=== PATIENT | female | born 1995 | race Caucasian/White ===

== ENCOUNTER 2021-12-06 02:56 | Inpatient (IN) ==
[2021-12-06] MEDS ORDERED: OXYTOCIN 30 UNITS/500 ML BAG IV PRN ×3 (03:36→23:58)
[2021-12-06] MEDS ORDERED: PENICILLIN G POTASSIUM 6 MU in DEXTROSE 5% 250 ML IV STA (03:36)
[2021-12-06] MEDS ORDERED: LIDOCAINE 1% LOCAL 20 ML VIAL INFIL PRN (03:36)
[2021-12-06] MEDS ORDERED: BUTORPHANOL TARTRATE 1 MG/ML VIAL IV PRN (03:41)
[2021-12-06] MEDS: LACTATED RINGER'S 1,000 ML IV PRN ×4 (04:06→20:01)
[2021-12-06 04:17] LABS: Hematocrit (blood only) 39.4 % (34.1-44.9); Hemoglobin 13.2 g/dl (12.0-16.0); Mean Corpuscular Hemoglobin 27.7 pg (25.0-34.0); Mean Corpuscular Hgb Conc 33.5 g/dL (32.0-36.0); Mean Corpuscular Volume 82.8 fL (80.0-100.0); Mean Platelet Volume 11.8 fL (9.4-12.3); Platelet Count 265 K/uL (130-400); RDW Coefficient of Variation 15.1 % (11.5-14.5); Red Blood Count 4.76 M/uL (3.93-5.22); White Blood Count 9.19 K/ul (4.8-10.8)
[2021-12-06] MEDS ORDERED: SODIUM CHLORIDE 0.9% 250 ML IV PRN (04:25)
[2021-12-06] MEDS: PENICILLIN G POTASSIUM 3 MU in DEXTROSE 5% 100 ML IV PRN ×4 (08:14→20:02)
--- NOTE | 2021-12-06 08:19 | History & Physical Report ---
Date of Service December 06, 2021 Assessment & Plan (1) : Plan: Plan for Oxytocin to augment ctx Admission and Anticipated Discharge Date Admission Date: December 06, 2021 History of Present Illness Chief Complaint: spontaneous rupture of membranes Primary Care Provider: Tania Oliver MD 26 F P0000 at 38.6 with SROM clear fluid. GBS is negative. mild contractions. Allergies Allergy/AdvReac Type Severity Reaction Status Date / Time No Known Allergies Allergy Verified 12/06/21 03:15 Home Medications Medication Instructions Recorded Confirmed Type omeprazole 20 mg capsule,delayed 20 mg PO BID 11/24/18 12/06/21 History release cetirizine 10 mg capsule (Zyrtec) 10 mg PO DAILY PRN Allergy Symptoms 01/06/21 12/06/21 History prenat.vits,tanna,[id number] 1 tab PO DAILY 04/23/21 12/06/21 History ascorbic acid (vitamin C) 300 mg 300 mg PO DAILY 12/06/21 12/06/21 History chewable tablet ferrous sulfate 325 mg (65 mg 325 mg PO BID 12/06/21 12/06/21 History iron) tablet (iron) Patient History Medical History H/O breast lump H/O: depression Uterine fibroid found in beginning of Surgical History H/O eye surgery Family History Father Cardiac disorder Diabetes Hypertension Mother Depression Diabetes Hypertension Other Dyslipidemia Denies family history of Ovarian cancer Breast cancer Colorectal cancer Uterine cancer Social History Smoking Status: Never smoker Hx Alcohol Use: No Hx Substance Use: No Preferred Language: Macedonian Communication Ability: Effective Tree Pruner Required: No Beliefs That Will Affect Care: None marital status: marital status details: David (29) unable to have phone, call grandmother [phone] Current Living Situation: Spouse and Family Current Living Situation Comment: lives with spouse, grandparents, 1 dog. 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 History history of fibroid Review of Systems All systems reviewed & are unremarkable except as noted in HPI & below Physical Exam Constitutional: WD/WN, vitals as above Eyes: PERRL, conjunctivae normal, anicteric sclerae Respiratory: normal respiratory effort, lungs clear to auscultation Cardiovascular: RRR, no murmur, no edema Gastrointestinal (Abdomen): normal bowel sounds, soft, nontender, no hepatosplenomegaly Musculoskeletal: Extremities: extremities normal to inspection Skin: no rashes, warm and dry Neurologic: patellar DTR's 2+ bilat, sensation intact Psychiatric: A+Ox3, euthymic affect Genitourinary: no vaginal lesions, no adnexal mass OB Exam Abdomen: + fundal height, + vertex and + estimated weight (7-8) Manual OB Exam: + cervical dilation 2 cm, + cervical effacement 60% and + station (posterior) -2 OB Exam Monitor Tracing: + external FHT monitor used, + external uterine monitor used, + category I and + normal FHT variability Results & Data ([facility]) Vital Signs (Past 12 Hours) Vital Signs Temp Pulse Resp BP 12/06/21 03:20 36.7 C 18 12/06/21 07:10 36.6 C 12/06/21 07:05 96 H 132/78 12/06/21 04:59 36.4 C L 12/06/21 03:11 89 132/88 Laboratory Results Laboratory Results - last 24 hr 12/06/21 12/06/21 12/06/21 03:34 03:40 03:56 WBC RBC Hgb Hct MCV MCH MCHC RDW Std Deviation RDW Coeff of Cecilia Plt Count MPV POC Glucose 95 Amniotic Protein Pending SARS-CoV-2, RNA, NAAT NEGATIVE Blood Type Antibody Screen Crossmatch 12/06/21 12/06/21 03:58 03:58 WBC 9.19 RBC 4.76 Hgb 13.2 Hct 39.4 MCV 82.8 MCH 27.7 MCHC 33.5 RDW Std Deviation 46.0 RDW Coeff of Cecilia 15.1 H Plt Count 265 MPV 11.8 POC Glucose Amniotic Protein SARS-CoV-2, RNA, NAAT Blood Type O Positive Antibody Screen NEGATIVE Crossmatch See Detail Code Status & VTE Plan VTE Prophylaxis Plan VTE Prophylaxis will be ordered: No Monitoring External Monitor Cat 1
[2021-12-06] MEDS ORDERED: NALBUPHINE HCL INJ 10 MG/ML AMP IV PRN (10:49)
[2021-12-06] MEDS ORDERED: NALOXONE HCL 0.4 MG/1 ML VIAL/CARP IV PRN (10:49)
[2021-12-06] MEDS ORDERED: fentaNYL 2MCG/ML ROPIVACAINE 1.25MG/ML 100 ML BAG EPI PRN (10:49)
[2021-12-06] MEDS ORDERED: ePHEDrine sulfate 50 MG/ML AMP IV PRN (10:49)
[2021-12-06] MEDS ORDERED: NALOXONE HCL 1 MG in SODIUM CHLORIDE 0.9% 1000ML 1,000 ML IV PRN (10:49)
[2021-12-06] MEDS ORDERED: diphenhydrAMINE 50 MG/ML VIAL IV PRN (10:49)
--- NOTE | 2021-12-06 10:49 | Anesthesiology Consultation ---
Date of Service December 06, 2021 Assessment & Plan (1) Encounter for pre-operative examination: Chart Review Chart Review: Patient NOT seen in Pre Admission Testing and Acceptable Risk for Labor Epidural Consults Requested none History Height/Weight Height: 5 ft 5 in Weight: 106.141 kg Allergies Allergy/AdvReac Type Severity Reaction Status Date / Time No Known Allergies Allergy Verified 12/06/21 03:15 Medications Home Medications Medication Instructions Recorded Confirmed Last Taken omeprazole 20 mg capsule,delayed 20 mg PO BID 11/24/18 12/06/21 12/05/21 22:00 release cetirizine 10 mg capsule (Zyrtec) 10 mg PO DAILY PRN Allergy Symptoms 01/06/21 12/06/21 12/05/21 22:00 prenat.vits,tanna,[id number] 1 tab PO DAILY 04/23/21 12/06/21 12/05/21 22:00 ascorbic acid (vitamin C) 300 mg 300 mg PO DAILY 12/06/21 12/06/21 12/06/21 00:00 chewable tablet ferrous sulfate 325 mg (65 mg 325 mg PO BID 12/06/21 12/06/21 12/06/21 00:01 iron) tablet (iron) Active Medications Generic Name Dose Route Start Last Admin Trade Name Freq PRN Reason Stop Dose Admin Lactated Ringer's 1,000 mls @ 125 mls/hr 12/06/21 03:36 12/06/21 08:14 Lr IV 12/08/21 03:35 125 mls/hr .Q8H PRN Administration L&D Protocol Protocol Penicillin G Potassium 3 mu/ 106 mls @ 100 mls/hr 12/06/21 06:36 12/06/21 08:14 Dextrose IV 12/16/21 06:35 100 mls/hr Q4H PRN Administration GBS(+) Until Delivery Oxytocin 30 units in 500 mls @ 1 mls/hr 12/06/21 08:05 12/06/21 09:21 Pitocin IV 12/08/21 08:04 0.06 units/hr .Q24H PRN 1 mls/hr Labor Induction/Augmentation Administration Protocol 0.06 UNITS/HR Past Medical History Medical History H/O breast lump H/O: depression Uterine fibroid found in beginning of Past Family History Family History Father Cardiac disorder Diabetes Hypertension Mother Depression Diabetes Hypertension Other Dyslipidemia Denies family history of Ovarian cancer Breast cancer Colorectal cancer Uterine cancer Past Surgical History Surgical History H/O eye surgery Social History Smoking Status: Never smoker Hx Alcohol Use: No Hx Substance Use: No substance use type: does not use Physical Exam Vital Signs Last Vital Signs Temp 97.7 F 12/06/21 09:39 Pulse 83 12/06/21 10:37 Resp 18 12/06/21 03:20 BP 149/82 H 12/06/21 10:37 Testing Laboratory Results 12/06/21 03:58 Blood Type O Positive 12/06/21 03:58 Antibody Screen NEGATIVE 12/06/21 03:58 12/06/21 03:56 POC Glucose 95
[2021-12-06] MEDS ORDERED: ePHEDrine sulfate 50 MG/ML AMP ONE (10:52)
[2021-12-06] MEDS ORDERED: SODIUM CHLORIDE 0.9% INJ 10 ML VIAL ONE (10:52)
[2021-12-06] MEDS ORDERED: fentaNYL citrate 100 MCG/2 ML VIAL ONE (10:52)
[2021-12-06] MEDS ORDERED: BUPIVACAINE 0.25% 30 ML VIAL ONE ×2 (10:53→22:30)
[2021-12-06] MEDS ORDERED: LIDOCAINE 2%/EPINEPHRINE 1:200,000 20 ML SDV ONE (10:53)
[2021-12-06] MEDS ORDERED: fentaNYL 2MCG/ML ROPIVACAINE 1.25MG/ML 100 ML BAG EPI ONE (10:54)
[2021-12-06] MEDS ORDERED: ONDANSETRON INJ 2 MG/ML 2 ML VIAL IV PRN (16:08)
[2021-12-06] MEDS ORDERED: NURSING L&D Epidural Breakthrough Pain Update ONE (17:54)
[2021-12-06] MEDS ORDERED: ACETAMINOPHEN 325 MG TAB ONE (19:33)
[2021-12-06] MEDS: ACETAMINOPHEN 325 MG TAB PO PRN (19:35)
[2021-12-06] MEDS ORDERED: BENZOCAINE 20% AER SPR 82.5 GM CAN EXT PRN (23:58)
[2021-12-06] MEDS ORDERED: DIPHTHERIA/TETANUS/PERTUSSIS 0.5 ML SYR/VIAL IM ONE (23:58)
[2021-12-06] MEDS ORDERED: ACETAMINOPHEN 325 MG TAB PO PRN (23:58)
[2021-12-06] MEDS ORDERED: bisacodyL 10 MG SUPP PR PRN (23:58)
[2021-12-06] MEDS ORDERED: HYDROCORTISONE ACETATE 25 MG SUPP PR PRN (23:58)
--- NOTE | 2021-12-07 00:01 | Delivery Summary ---
Vaginal Delivery Summary Date of Service December 06, 2021 Vaginal Delivery Summary Delivery Note live male IZA over intact perineum with nuchal cord x1 reduced at delivery. Spontaneous delivery of intact placenta. Small first degree tear repaired with 3/0 Vicryl suture. EBL 150 ml. Final sponge needle and instrument count are correct. Mom and baby stable.
[2021-12-07] MEDS: IBUPROFEN 600 MG TAB PO PRN ×3 (00:33→15:37)
[2021-12-07] MEDS ORDERED: CETIRIZINE HCL 10 MG TABLET PO PRN (00:39)
[2021-12-07 07:49] LABS: Hematocrit (blood only) 36.7 % (34.1-44.9); Hemoglobin 12.3 g/dl (12.0-16.0); Mean Corpuscular Hemoglobin 28.1 pg (25.0-34.0); Mean Corpuscular Hgb Conc 33.5 g/dL (32.0-36.0); Mean Corpuscular Volume 83.8 fL (80.0-100.0); Mean Platelet Volume 12.5 fL (9.4-12.3); Platelet Count 268 K/uL (130-400); RDW Coefficient of Variation 15.4 % (11.5-14.5); Red Blood Count 4.38 M/uL (3.93-5.22); White Blood Count 18.35 K/ul (4.8-10.8)
[2021-12-07] MEDS: DOCUSATE SODIUM 100 MG CAP PO SCH ×2 (08:47→19:40)
[2021-12-07] MEDS: FERROUS SULFATE 325 MG TAB PO SCH (08:47)
[2021-12-07] MEDS: PRENATAL VITAMIN 1 TAB PO SCH (08:47)
[2021-12-07] MEDS: PANTOprazole 40 MG TAB PO SCH ×2 (08:49→19:40)
--- NOTE | 2021-12-07 08:58 | Anesthesia Procedure Note ---
Date of Service December 07, 2021 Anesthesia Post Epidural Note Vital Signs Vital Signs: Temp Pulse Resp BP Pulse Ox O2 Del Method 97.9 F 90 20 116/79 98 12/07/21 08:11 12/07/21 08:11 12/07/21 08:11 12/07/21 08:11 12/07/21 08:11 12/07/21 08:11 Pain Intensity Left Abdomen: Pain Intensity: 2 Notes Mental Status: alert / awake / arousable and participated in evaluation Nausea / Vomiting: adequately controlled Pain: adequately controlled Airway Patency, RR, SpO2: stable & adequate BP & HR: stable & adequate Hydration State: stable & adequate Neuraxial Anesthesia: was administered and sensory block is resolving Anesthetic Complications: no major complications apparent and Pt Satisfied with anesthetic care Epidural: Removed without complications and With tip intact
[2021-12-07] MEDS ORDERED: NON-FORMULARY MEDICATION (Prenat.Vits,Cal,Min-Iron-Folic tablet) PO SCH (09:00)
[2021-12-07] MEDS ORDERED: ASCORBIC ACID 300 MG PO SCH (09:00)
[2021-12-07] MEDS ORDERED: NON-FORMULARY MEDICATION (Ferrous Sulfate [Iron] 325 mg (65 mg iron) Tablet) PO SCH (09:00)
--- NOTE | 2021-12-07 10:15 | Obstetrical Progress Note ---
Date of Service December 07, 2021 Assessment & Plan (1) Normal course: PPD #1 pt doing well anticipate dsic h tomorrow Subjective Ambulation: ambulating normally Voiding: no voiding problems Passing Gas:: Yes Diet Tolerance:: regular diet Lochia:: Small Feeding Type:: breast feeding Review of Systems All systems reviewed & are unremarkable except as noted in HPI & below Physical Exam Constitutional WD/WN, vitals as above well developed and well nourished Eyes PERRL, conjunctivae normal, anicteric sclerae Neck trachea midline, no thyromegaly Respiratory normal respiratory effort, lungs clear to auscultation Auscultation: no crackles, no rales and no wheezes Cardiovascular RRR, no murmur, no edema Gastrointestinal (Abdomen) normal bowel sounds, soft, nontender, no hepatosplenomegaly Uterus is below umbilicus Musculoskeletal no cyanosis or clubbing, extremities motor strength 5/5 Skin no rashes, warm and dry Neurologic patellar DTR's 2+ bilat, sensation intact Psychiatric A+Ox3, euthymic affect Genitourinary normal external appearance [facility] Vital Signs (Past 12 Hours) Vital Signs Temp Pulse Pulse Resp BP BP Pulse Ox 12/07/21 08:11 36.6 C 90 20 116/79 98 12/07/21 02:30 36.4 C L 100 H 16 122/84 98 12/07/21 02:00 89 20 140/87 12/07/21 01:23 90 20 145/78 H 12/07/21 00:38 90 20 142/69 H 12/07/21 00:53 90 18 137/70 12/07/21 00:23 90 18 142/69 H 12/07/21 00:08 90 18 12/06/21 23:53 90 18 12/07/21 02:03 89 140/87 12/07/21 01:53 94 H 152/83 H 12/07/21 01:38 90 145/78 H 12/07/21 01:23 93 H 141/80 H 12/07/21 01:08 97 H 136/84 12/07/21 00:53 90 137/70 12/07/21 00:38 90 142/69 H 12/07/21 00:23 146/82 H 12/07/21 00:09 101 H 144/66 H 12/06/21 23:53 107 H 151/115 H 12/06/21 23:49 101 H 98 12/06/21 23:44 107 H 97 12/06/21 23:39 95 H 98 12/06/21 23:15 18 12/06/21 23:15 18 12/06/21 23:34 105 H 98 12/06/21 23:29 106 H 98 12/06/21 23:28 87 139/97 12/06/21 23:26 95 H 91 12/06/21 23:24 102 H 99 12/06/21 23:19 131 H 98 12/06/21 23:14 96 H 98 12/06/21 23:13 92 H 143/84 H 12/06/21 23:09 84 100 12/06/21 23:04 80 99 12/06/21 22:59 75 99 12/06/21 22:58 20 12/06/21 22:58 36.9 C 20 12/06/21 22:30 18 12/06/21 22:30 18 12/06/21 22:54 78 100 12/06/21 22:53 80 153/66 H 12/06/21 22:49 89 100 12/06/21 22:46 82 151/79 H 12/06/21 22:44 80 100 12/06/21 22:41 77 143/104 H 12/06/21 22:39 86 99 12/06/21 22:36 93 H 182/87 H 12/06/21 22:34 123 H 99 12/06/21 22:33 91 H 175/110 H 12/06/21 22:29 83 99 12/06/21 22:24 95 H 100 12/06/21 22:19 97 H 100 12/06/21 22:14 104 H 99 O2 Del Method 12/07/21 08:11 Room Air 12/07/21 02:30 Room Air 12/07/21 02:00 12/07/21 01:23 12/07/21 00:38 12/07/21 00:53 12/07/21 00:23 12/07/21 00:08 12/06/21 23:53 12/07/21 02:03 12/07/21 01:53 12/07/21 01:38 12/07/21 01:23 12/07/21 01:08 12/07/21 00:53 12/07/21 00:38 12/07/21 00:23 12/07/21 00:09 12/06/21 23:53 12/06/21 23:49 12/06/21 23:44 12/06/21 23:39 12/06/21 23:15 12/06/21 23:15 12/06/21 23:34 12/06/21 23:29 12/06/21 23:28 12/06/21 23:26 12/06/21 23:24 12/06/21 23:19 12/06/21 23:14 12/06/21 23:13 12/06/21 23:09 12/06/21 23:04 12/06/21 22:59 12/06/21 22:58 12/06/21 22:58 12/06/21 22:30 12/06/21 22:30 12/06/21 22:54 12/06/21 22:53 12/06/21 22:49 12/06/21 22:46 12/06/21 22:44 12/06/21 22:41 12/06/21 22:39 12/06/21 22:36 12/06/21 22:34 12/06/21 22:33 12/06/21 22:29 12/06/21 22:24 12/06/21 22:19 12/06/21 22:14
[2021-12-07] MEDS: ACETAMINOPHEN 325 MG TAB PO PRN (19:39)
[2021-12-07] MEDS ORDERED: bisacodyL 5 MG TABEC PO SCH (20:00)
[2021-12-08] MEDS: IBUPROFEN 600 MG TAB PO PRN ×2 (03:49→07:21)
[2021-12-08 06:27] LABS: Hematocrit (blood only) 33.9 % (34.1-44.9); Hemoglobin 11.1 g/dl (12.0-16.0)
[2021-12-08] MEDS: PRENATAL VITAMIN 1 TAB PO SCH (07:21)
[2021-12-08] MEDS: FERROUS SULFATE 325 MG TAB PO SCH (07:22)
[2021-12-08] MEDS: DOCUSATE SODIUM 100 MG CAP PO SCH (07:22)
[2021-12-08] MEDS: PANTOprazole 40 MG TAB PO SCH (08:55)
--- NOTE | 2021-12-08 10:40 | Obstetrical Progress Note ---
Date of Service December 08, 2021 Assessment & Plan (1) Normal course: Pt dong well No complaints dish home with instructions Subjective Ambulation: ambulating normally Voiding: no voiding problems Passing Gas:: Yes Diet Tolerance:: regular diet Lochia:: Small Feeding Type:: breast feeding Review of Systems All systems reviewed & are unremarkable except as noted in HPI & below Physical Exam Constitutional WD/WN, vitals as above well developed and well nourished Eyes PERRL, conjunctivae normal, anicteric sclerae Neck trachea midline, no thyromegaly Respiratory normal respiratory effort, lungs clear to auscultation Auscultation: no crackles, no rales and no wheezes Cardiovascular RRR, no murmur, no edema Gastrointestinal (Abdomen) normal bowel sounds, soft, nontender, no hepatosplenomegaly Uterus is below umbilicus Musculoskeletal no cyanosis or clubbing, extremities motor strength 5/5 Skin no rashes, warm and dry Neurologic patellar DTR's 2+ bilat, sensation intact Psychiatric A+Ox3, euthymic affect Genitourinary normal external appearance Results & Data ([facility]) Vital Signs (Past 12 Hours) Vital Signs Temp Pulse Resp BP Pulse Ox O2 Del Method 12/08/21 07:20 36.6 C 91 H 18 138/88 96 Room Air 12/08/21 07:20 Room Air 12/07/21 23:22 36.8 C 98 H 18 122/84 97 Room Air
== END 2021-12-08 12:45 | disposition home or self-care (01) | DRG 807 ==
LOC: OPB 02:56 → 4S1 03:03 → 4E2 12-07 04:45